=== PATIENT | female | born 1950 | race Caucasian/White ===

== ENCOUNTER → 2016-12-25 | Outpatient (CLI) | payer MEDICARE, OTHER ==
[~2016-12-25] MED LIST: ASPIRIN325 MG PO; CALCIUM 500 +1 EAC2 PO; CALCIUM 600+D1 EAC2 PO; CALCIUM-MAGNES1 EAC1 PO; CVS OMEGA-3 KR1 EAC1 PO; GARLIC1000 MG PO; NORCO 5-325 TA1 EACH PO; TURMERIC500 MG PO; UROMAG84.5 MG PO
[2016-12-25 13:13] LABS: BASOPHIL # 0.1 K/uL (0.0-0.2); BASOPHIL % 0.8 %; BILIRUBIN URINE NEGATIVE (NEGATIVE); BLOOD URINE NEGATIVE /UL (NEGATIVE); COLOR URINE STRAW (YELLOW); EOSINOPHIL # 0.1 K/uL (0.0-0.5); EOSINOPHIL % 0.7 %; GLUCOSE URINE NEGATIVE (NEGATIVE); HEMATOCRIT 43.8 % (33.0-46.0); IMMATURE GRANULOCYTE % 0.1 %; KETONE URINE 5 mg/dL (NEGATIVE); LEUKOCYTES URINE NEGATIVE /UL (NEGATIVE); LYMPHOCYTE # 4.3 K/uL (0.8-4.0); LYMPHOCYTE % 50.7 %; MCH 32.1 pg (27.0-34.0); MCHC 34.2 gm/dL (32.0-36.5); MCV 93.8 fl (83.0-98.0); MONOCYTE # 0.8 K/uL (0.0-1.0); NEUTROPHIL # (ANC) 3.3 K/uL (1.8-7.8); NEUTROPHIL % 38.7 %; NITRITE URINE NEGATIVE (NEGATIVE); NRBC % 0 /100WBC (0-0.00); PH URINE 6.5 (4.0-8.0); PLATELET COUNT 261 K/uL (150-450); PROTEIN URINE NEGATIVE (NEGATIVE); RBC 4.67 M/uL (3.50-5.50); RDW-CV 12.8 % (11.9-14.6); SPEC GRAVITY URINE 1.005 (1.003-1.035); TURBIDITY URINE CLEAR (CLEAR); UROBILINOGEN URINE NORMAL (NORMAL); WBC 8.4 K/uL (4.0-11.0)
[2016-12-25 13:28] LABS: CREATININE 0.8 mg/dL (0.5-1.1); ESTIMATED GFR (MDRD EQUATION) > 60
== END | disposition disaster alternative care site (69) ==
LOC: GLAB 12-24 → GRAD 12:33 → GLAB 13:00 → GRAD 12-28 16:00
PROVIDERS: Orthopaedic Surgery
DX: M54.5 Low back pain (principal); M54.16 Radiculopathy, lumbar region; M41.86 Other forms of scoliosis, lumbar region; M47.26 Other spondylosis with radiculopathy, lumbar region; M43.06 Spondylolysis, lumbar region
CPT/HCPCS: A9577

== ENCOUNTER 2016-12-30 11:00 | Inpatient (IN) | payer MEDICARE, OTHER ==
[~2016-12-30] VITALS: Ht 152.4 cm; Wt 54.0 kg
--- NOTE | ~2016-12-30 | CON ---
PATIENT'S NAME: HEATHER LEW [facility] AGE: 66 Y [address] ROOM: [place] [address] LOCATION: [facility] [place] ADMIT DATE: 01/01/2017 Consultation DISCHARGE DATE: FAMILY PHYSICIAN: Vivian Naranjo MD ATTENDING PHYSICIAN: Dangelo Valentin DATE OF CONSULTATION: 01/02/2017 REFERRING PHYSICIAN: ROLY DIXON MD TIME: 1 p.m. REQUESTING PHYSICIAN: Orthopedic surgeon, Dr. Valentin. HISTORY OF PRESENT ILLNESS: Ms. Heather Lew is a 66-year-old female patient who is status post surgery yesterday for removal of a lipoma of the right lateral leg. After surgery, she stated that she immediately noted that her left hand and fingers were weak. She presently cannot extend the fingers or extend the wrist. She also has some difficulty in abducting the small digit and possibly there is a bit of weakness of dorsal interossei muscles. Proximal muscles of the left upper extremity are essentially normal. It was a brief surgery though it did involve anesthesia, the patient stated that she did not have any deficits prior to going into the surgery. Neurology was asked to assess the patient based upon the weakness of the left upper extremity. The patient denies any sensory numbness into the palm of the hand, but she is fairly consistent in saying that she is numb on the back of the hand, particularly in the dorsum of the hand between the thumb and the second digit. Distal to the wrist, there is also some numbness extending into the back of the hand medially. There is no numbness into the palmar surface of the hand. There is perhaps some minor numbness at the lateral aspect of the fifth digit. There is no pain or numbness from the elbow distally and there is no neck pain or focal shoulder pain. CURRENT MEDICATIONS: Orders include oxycodone 1 tablet q.2 hours p.r.n. pain. PAST MEDICAL HISTORY: The patient denies any significant prior medical history. The history is noncontributory. SOCIAL HISTORY: The patient is to her . PATIENT'S NAME: HEATHER LEW [facility] AGE: 66 Y [address] ROOM: [place] [address] LOCATION: [facility] ADMIT DATE: 01/01/2017 Consultation DISCHARGE DATE: FAMILY PHYSICIAN: Vivian Naranjo MD ATTENDING PHYSICIAN: Dangelo Valentin PAST SURGICAL HISTORY: Surgical history of the arm. She denies any focal neuropathies of the extremities in the past. REVIEW OF SYSTEMS: The patient is otherwise a healthy female, thin in built with very little fat at the extremities. The review of systems only consistent with new onset of weakness in basically extension of the wrist and fingers. PHYSICAL EXAMINATION: GENERAL: The patient is alert and oriented. NEURO: Her speech is clear. Cranial nerves 2 through 12 was grossly intact. Her motor exam proximally and distally were normal of the upper and lower extremities except for the left upper extremity where there is a dropped finger and dropped wrist. There is no ability to extend the wrist or fingers presently. Placing the hand in a relaxed position on the bed, she cannot demonstrate abduction of the fifth digit; however, there is slightly diminished power to the forced dorsal interossei muscle compared to the right as other dorsal interossei muscles perhaps are a bit weak as well. Sensory numbness is only confined again to the dorsum of the hand and between the area of the thumb and the first digit. Positive Tinel's at the right elbow consistent with an ulnar nerve tenderness. The patient has good proximal muscles in the left arm including supraspinatus and infraspinatus power being normal. Biceps power is completely normal 5/5 as well as triceps power 5/5. Pronation of the forearm is normal as well as supination of the forearm, it appears to be a bit weaker than pronation. Power of the ADM is currently trace of 5 and then again there is absent ability to extend the wrist and the fingers. 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 The patient is certainly thin and has very little fat, is probably a bit prone to compressive neuropathy during surgery. She presents with what I believe is primarily a radial neuropathy, as these radial neuropathies spare the triceps as the power to the triceps is well-preserved, but extensor muscles of the forearm controlling the wrist and the fingers resulted in a loss of power. It is usually a compressive neurapraxia which is self-limited and may last a number of days and perhaps a bit longer if there is a bit slower recovery. It is odd and it was pointed out by Dr. Valentin is that she has some weakness also in the ADM muscle, which was not readily apparent to me initially. 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 The presence of a positive Tinel's for very brief minor surgical procedure that was not prolong, this is certainly a strange to me, perhaps the PATIENT'S NAME: HEATHER LEW [facility] AGE: 66 Y [address] ROOM: [id number] [place], [place] [address] LOCATION: [facility] ADMIT DATE: 01/01/2017 Consultation DISCHARGE DATE: FAMILY PHYSICIAN: Vivian Naranjo MD ATTENDING PHYSICIAN: Dangelo Valentin patient had a previous Tinel's at the area and would have been prone to develop an ulnar neuropathy though she denies any weakness prior to the surgery of the ulnar nerve seem a bit strange that the ulnar nerve would develop in the setting of also a radial neuropathy. Certainly, I would expect that a radial neuropathy would be more self-limiting and would make a recovery due to local conduction blocks due to injury to the myelin. However, with the patient showing absolute immobility of the ADM, this is extremely odd as it is not weak. Against, it likely suggests that there is a compression of the ulnar nerve at the elbow, possibly some slowing at the elbow may have preexisted this to develop such gross weakness on abduction of the finger. I discussed with the patient that I would likely expect that the radial nerve neuropathy would come back much quicker. We cannot demonstrate that these nerves are affected at this point in time since this is an acute neuropathy, it would normally take at least 2 to perhaps 3 weeks before the findings would be seen on nerve conduction EMG. If the patient still has weakness persistent, we would want her to get a nerve conduction study, especially at the area of the ulnar nerve where there is a positive Tinel's. She may ultimately have an increased risk for pressure palsy, perhaps it was even a genetic setup for surgery to have 2 mononeuropathies develop after a seemingly brief procedure. If I can be of any assistance to Dr. Valentin or to the patient, the patient can follow up with us in Neurology Clinic if need be and we could take any workup further. MD CHRISTOPHER RAINES/suki /[id number] d: 01/02/177 t: 01/06/17 1748, CONSULTATION REPORT
--- NOTE | ~2016-12-30 | DS ---
PATIENT'S NAME: TIMMY LEW [facility] AGE: 66 Y [address] ROOM: [place] [address] LOCATION: [facility] [place] ADMIT DATE: 01/01/2017 Discharge Summary DISCHARGE DATE: 01/03/2017 FAMILY PHYSICIAN: Vivian Naranjo MD ATTENDING PHYSICIAN: Dangelo Fuentes Ms. Lew had a large and increasing size soft tissue mass right buttock and thigh, most consistent with lipoma. MRI was not suggestive of aggressive behavior, but the size and the change in size concerning. Surgical excision indicated, was taken to the operating room, easily excised, closed primarily over drains. Postop had nerve palsies left upper extremity. Did not improve overnight. Consultation with Neurology confirmed nerve palsy, expect good prognosis, was fitted with a functional brace. Postop day number 2, Hemovac was discontinued. The wound was examined, completely intact, ready for discharge to home. [place] for pain. Transitioned to Tylenol. Discussed DVT prophylaxis. Opted for aspirin 325 mg once a day. Has medications including stool softeners at home. We will work on range of motion of the right foot, knee and hip as well as range of motion of the left hand. Will use a functional brace left upper extremity when up. DIET: Regular diet. ACTIVITY: Avoid dangerous activities. DISCHARGE MEDICINES: Also includes as on admission garlic, turmeric, Krill, calcium, magnesium oxide and multi mineral. Will follow up with Dr. Fuentes on January 25, 2017, at 10 a.m. If function has not returned to the left upper extremity, we will have Dr. Monaco, Neurology do electrodiagnostic testing of the left upper extremity. DANGELO FUENTES MD DPM/suki /[id number] d: 01/03/17 1414 t: 01/20/17 1006, DISCHARGE SUMMARY
--- NOTE | ~2016-12-30 | OR ---
PATIENT'S NAME: TIMMY LEW [facility] AGE: 66 Y [address] ROOM: [address] [address] LOCATION: [facility] [place] ADMIT DATE: 01/01/2017 OR/Procedure Report DISCHARGE DATE: FAMILY PHYSICIAN: Vivian Naranjo MD ATTENDING PHYSICIAN: Dangelo Fuentes SURGEON: Dangelo Fuentes MD ACCOUNT SERVICE REPRESENTATIVE: DATE OF PROCEDURE: 01/01/2017 DIAGNOSES: Soft tissue tumor, most likely lipoma, right hip and buttocks. PROCEDURE: Excision of soft tissue tumor of right hip and buttocks. ANESTHESIA: General. INDICATION: Ms Lew is a 66-year-old healthy white female. She has noticed over the last year increasing mass in her right buttocks and thigh, in fact, it is significantly increased in size, it is large. She is healthy without any red flags. 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 Risks, benefits, and alternatives have all been discussed. DESCRIPTION OF PROCEDURE: The patient was taken to the operating room. General anesthetic via endotracheal tube. Left lateral decubitus position on the santiago bag. A 2 g Kefzol for prophylaxis. The right flank, hip, and lower extremity were prepared with DuraPrep and draped sterilely. A 25 cm lateral incision from just distal to the iliac crest along the axis of the femur. An elliptical excision of skin approximately 2 cm anterior to the incision, dissection down to the pseudocapsule of the mass, dissected anteriorly and posteriorly, distally and proximally around the mass. Dissection down to the iliotibial band and was excised. Dimensions of the tumor 25 cm x 20 cm x 5 cm. Meticulous attention to hemostasis with bipolar. Irrigated with 3 L of pulse lavage. The anterior and posterior flaps were tacked down to the iliotibial band with 2-0 Vicryl. 1/8th inch Hemovac drain was placed deep in the wound. Subcutaneous tissues closed with 0 Vicryl, followed by 2-0 Vicryl subcuticular, followed by josiah. Xeroform and dry sterile dressing. Hernan wrap and spica. Procedure is done without complication. ESTIMATED BLOOD LOSS: From the procedure was 50 mL. SPECIMEN: Soft tissue mass, measuring 25 cm x 20 cm x 5 cm sent in formalin for permanent histology. DISPOSITION: To recovery room in stable condition. PATIENT'S NAME: TIMMY LEW [facility] AGE: 66 Y [address] ROOM: [address] [address] LOCATION: [facility] [place] ADMIT DATE: 01/01/2017 OR/Procedure Report DISCHARGE DATE: FAMILY PHYSICIAN: Vivian Naranjo MD ATTENDING PHYSICIAN: Dangelo Fuentes DANGELO FUENTES MD DPM/suki /[id number] d: 01/01/17 1645 t: 01/20/17 1003, OPERATIVE SUMMARY
[2016-12-30] MEDS ORDERED: CALCIUM 500 +1 EAC2 PO (11:24)
[2016-12-30] MEDS ORDERED: GARLIC1000 MG PO (11:27)
[2016-12-30] MEDS ORDERED: TURMERIC500 MG PO (11:28)
[2016-12-30] MEDS ORDERED: CVS OMEGA-3 KR1 EAC1 PO (11:28)
[2016-12-30] MEDS ORDERED: CALCIUM 600+D1 EAC2 PO (11:29)
[2016-12-30] MEDS ORDERED: UROMAG84.5 MG PO (11:30)
[2016-12-30] MEDS ORDERED: CALCIUM-MAGNES1 EAC1 PO (11:31)
--- NOTE | 2017-01-01 16:27 | NUR ---
Significant Event:Here from PACU at 1205.Is A/O.Rt.leg from upper thigh down to foot is covered with drsg & albaro wrap.Has Rt.thigh hemovac maura bailey.No N/V.Has been up to BR with 1-2 assists,does well.Voiding in gd amts.Has SL in Rt.wrist.Has numbness in Lt.hand & states it just feels like it is .Can barely move fingers of Lt.hand.Anesthesiast came & talked to her about it as well as the surgeon.Thinks it will come back--think because of way she was laying on it in surgery.Had Percocet 1 at 1545 for incisional pain.Prob.home tomorrow. Follow up:
--- NOTE | 2017-01-02 04:22 | NUR ---
Patient is alert and oriented x3, very pleasant and cooperative, dressing clean dry and intact, hemavac in place had 100ml of bloody drainage, ambulates one assist to the bathroom with walker and gaitbelt, has numbness and tingling to left forearm and left hand that was not present prior to surgery-md seen her yesterday and told her it could be numb due to positioning during surgery, pulse is good in the wrist of the left hand but still unable to move it very well and numbness and tingling still present at 0300, family is requesting that the doctor see her again and they are wondering about a consult with at neurologist, patient has not rested well due to concerns with her hand and has been taking percocet for pain control which has helped
[2017-01-02 05:01] LABS: HEMATOCRIT 34.9 % (33.0-46.0); HEMOGLOBIN 11.9 g/dL (10.0-15.0)
--- NOTE | 2017-01-02 16:06 | NUR ---
Significant event: Continues to have numbness to left hand. Had Neurology consult and has a brace on left arm. Patient reports her arm feels better in the brace. Able to lift arm at shoulder and elbow but not at wrist or fingers. Dressing to right leg is dry and intact.
--- NOTE | 2017-01-03 05:04 | NUR ---
Significant Event: ALERT AND ORIENTED X3 AMBULATES INDEPENTLY IN ROOM. IS IN ROOM WITH AND ASSISTS HER NECESSARY. VSS WNL. ON RA. IV TO R WRIST SL. HEMIVAC WITH 40 OUT. LFT ARM NUMB FROM FINGERS TO SHOULDER. HAND DROPS AT WRIST PATIENT IS UNABLE TO LIFT WRIST AND HAS NO FEELINGN IN IT. WEARS HAND BRACE. HAD SURGERY CONSULT AND NEURO CONSULT. BOTH AGREE THAT NUMBNESS IS TEMPORARY DUE TO SURGICAL POSITIONING. GAVE 1 PERCOCET AT 2310 AND ONE NARCO AT 0359. Follow up:
[2017-01-03] MEDS ORDERED: ASPIRIN325 MG PO (10:42)
[2017-01-03] MEDS ORDERED: NORCO 5-325 TA1 EACH PO (10:45)
--- NOTE | 2017-01-03 15:10 | NUR ---
Significant event: Up in room with walker and minimal assist from staff or significant other. [place] last at 1435 prior to dismissal. Dressing to right leg dry and intact. Numbness continues to left arm. New brace for left wrist intact. Patient able to editor slightly with left hand, unable to move wrist up and down. Instructions for dismissal given to patient and to significant other.
== END 2017-01-03 15:00 | disposition disaster alternative care site (69) | DRG 572 ==
LOC: GMSU 01-01 07:10
PROVIDERS: ADMIT Orthopaedic Surgery
PROC: 0JBL0ZZ Excision of Right Upper Leg Subcutaneous Tissue and Fascia, Open Approach (ICD-10-PCS; principal; 2017-01-01)
DX: D17.23 Benign lipomatous neoplasm of skin and subcutaneous tissue of right leg (principal)
CPT/HCPCS: J0690; J1100; J1650; J1885; J2001; J2405; J3010; J7120